=== PATIENT | male | born 1965 | race Caucasian/White ===

== ENCOUNTER 2018-06-17 12:14 | Outpatient (CLI) | payer BC ==
--- NOTE | 2018-06-17 13:42 | RAD ---
TWO VIEWS OF THE CHEST: Comparison: 07-15-08 History: Nodule, predominately Hodgkin lymphoma. FINDINGS: Two views of the chest show normal sized cardiomediastinal silhouette. There is no evidence of consol idation, mass, or pleural effusion. The bones are unremarkable. IMPRESSION: No evidence of acute cardiopulmonary disease. POS: [facility]
== END 2018-06-17 12:15 | disposition home or self-care (01) ==
LOC: RAD 12:14 → BICRAD 12:15
PROVIDERS: ATTEND Internal Medicine Medical Oncology
DX: C81.00 Nodular lymphocyte predominant Hodgkin lymphoma, unspecified site (principal)
CPT/HCPCS: 71046; 80053; 80061; 82248; 83615; 84100; 84436; 84443; 84550